=== PATIENT | male | born 2000 | race Caucasian/White ===

== ENCOUNTER 2019-04-23 17:33 | Emergency (ER) | payer SELFPAY ==
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
[2019-04-23] MEDS ORDERED: Bacitracin Oint 1 GM U/D Packet TOP ONE (20:10)
== END 2019-04-23 20:28 | disposition home or self-care (01) ==
LOC: MW.ED 17:33
DX: S60.512A Abrasion of left hand, initial encounter (principal); S69.91XA Unspecified injury of right wrist, hand and finger(s), initial encounter; S89.91XA Unspecified injury of right lower leg, initial encounter; V29.9XXA Motorcycle rider (driver) (passenger) injured in unspecified traffic accident, initial encounter
CPT/HCPCS: 73110-26-RT; 73110-RT; 73130-26-LT; 73130-LT; 73590-26-RT; 73590-RT; 99283; 99283-25